=== PATIENT | male | born 1940 | race Two or more races ===

== ENCOUNTER 2022-12-23 00:29 | Inpatient (IN) | payer MEDICARE, MEDICAID ==
[~2022-12-23] VITALS: Ht 157.5 cm; Wt 60.0 kg
[2022-12-23] MEDS ORDERED: IPRATROPIUM NEB FS 0.5 MG/2.5 ML AMPUL.NEB ONE (00:40)
[2022-12-23] MEDS ORDERED: ALBUTEROL FS 2.5 MG/3 ML VIAL.NEB ONE (00:40)
--- NOTE | 2022-12-23 00:41 | NUR ---
[id number] FROM HOME C/O SOB X2 DAYS WORSER TONIGHT. 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 UPON ARRIVAL ON CPAP 100%. PATIENT IS AAOX4. ARMANIAN SPEAKING. ABLE TO MAKE NEEDS KNOWN. WAS SWITCH TO NASAL CANNULA AT 2LPM SATURATING 98%. PLACED COMFORTABLY IN BED. VITALS CHECKED.
--- NOTE | 2022-12-23 00:43 | NUR ---
SEEN BY DR PRESSLEY AT BEDSIDE. 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
--- NOTE | 2022-12-23 00:45 | NUR ---
COVID SWAB DONE AND SENT TO LAB
--- NOTE | 2022-12-23 00:47 | NUR ---
CAME WITH IV CANNULA G18 ON RIGHT AC. BLOOD DRAWN AND SENT TO LAB
--- NOTE | 2022-12-23 00:48 | NUR ---
NEB TREATMENT STARTED
[2022-12-23] MEDS ORDERED: methylPREDNISolone SOD SUCC 125 MG/2ML VIAL ONE (00:52)
[2022-12-23] MEDS ORDERED: Magnesium 1GM/D5W 100ML PREMIX 100 ML IV ONE (00:53)
[2022-12-23] MEDS ORDERED: ALBUTEROL FS 2.5 MG/3 ML VIAL.NEB CONTNEB ONE (01:00)
[2022-12-23] MEDS ORDERED: Magnesium 1GM/D5W 100ML PREMIX 200 ML IV ONE (01:00)
[2022-12-23] MEDS ORDERED: IPRATROPIUM NEB FS 0.5 MG/2.5 ML AMPUL.NEB NEB ONE (01:00)
[2022-12-23] MEDS ORDERED: methylPREDNISolone SOD SUCC 125 MG/2ML VIAL IV ONE (01:00)
--- NOTE | 2022-12-23 01:07 | NUR ---
OVER SHORT AND DAMAGE CLERK AT PT'S BEDSIDE
[2022-12-23 01:13] LABS: BASOPHILS % (AUTO) 0.4 % (0.0-2.0); EOSINOPHILS % (AUTO) 6.1 % (0.0-6.0); HEMATOCRIT 49 % (39-51); LYMPHOCYTES # (AUTO) 2.8 K/uL (0.8-4.8); LYMPHOCYTES % (AUTO) 27.7 % (20.0-44.0); MEAN CORPUSCULAR HGB CONC 33 g/dl (31.0-36.0); MEAN CORPUSCULAR VOLUME 97 fL (80-96); MONOCYTES # (AUTO) 1.4 K/uL (0.1-1.30); MONOCYTES % (AUTO) 13.6 % (2.0-12.0); NEUTROPHILS # (AUTO) 5.2 K/uL (1.8-8.9); NEUTROPHILS % (AUTO) 52.2 % (43.0-81.0); PLATELET COUNT (AUTO) 165 K/uL (150-450); RED BLOOD CELL COUNT(AUTO) 5.06 MIL/uL (4.5-6.0)
[2022-12-23 01:25] LABS: CALCIUM, SERUM 9.3 mg/dL (8.5-10.1); CARBON DIOXIDE 29 mmol/L (21-32); CHLORIDE 102 mmol/L (98-107); GLUCOSE 108 mg/dL (74-106); POTASSIUM 4.6 mmol/L (3.5-5.1); SODIUM SERUM 136 mmol/L (136-145); UREA NITROGEN, BLOOD 16 mg/dL (7-18)
[2022-12-23 01:38] LABS: ALANINE AMINOTRANSFERASE 20 U/L (12-78); ALKALINE PHOSPHATASE 62 U/L (46-116); ASPARTATE AMINOTRANSFERASE 28 U/L (15-37); BILIRUBIN,DIRECT 0.1 mg/dL (0.0-0.2); BILIRUBIN,TOTAL 0.6 mg/dL (0.2-1.0)
--- NOTE | 2022-12-23 01:54 | NUR ---
ABG DONE AT BEDSIDE BY RT
--- NOTE | 2022-12-23 02:32 | NUR ---
1ST CONTACT # - ANGELA 2ND CONTACT # - TOMAS *PLS UPDATE FAMILY EVERY SHIFT
[2022-12-23] MEDS ORDERED: ONDANSETRON HCL/PF 4 MG/2 ML VIAL IVP PRN (03:30)
[2022-12-23] MEDS ORDERED: MAG HYDROX/AL HYDROX/SIMETH 30 ML UDC PO PRN (03:30)
[2022-12-23] MEDS ORDERED: ALBUTEROL FS 2.5 MG/3 ML VIAL.NEB NEB PRN (03:30)
[2022-12-23] MEDS ORDERED: LEVOFLOXACIN 500 MG /D5W 100ML 500 MG in PREMIX 1 EA IV SCH (03:30)
[2022-12-23] MEDS ORDERED: ACETAMINOPHEN 325 MG TABLET PO PRN (03:30)
[2022-12-23] MEDS ORDERED: ZOLPIDEM TARTRATE 5 MG TABLET PO PRN (03:30)
[2022-12-23] MEDS ORDERED: IPRATROPIUM NEB FS 0.5 MG/2.5 ML AMPUL.NEB NEB PRN ×2 (03:30→03:56)
[2022-12-23] MEDS ORDERED: MAGNESIUM HYDROXIDE 30 ML UDC PO PRN (03:30)
[2022-12-23] MEDS ORDERED: Z GUARD REMEDY 4 OZ OINT TP PRN (03:30)
--- NOTE | 2022-12-23 04:00 | NUR ---
REPORT GIVEN TO ANNA RESTREPO
[2022-12-23 04:30] VITALS: BP 132/85
--- NOTE | 2022-12-23 04:40 | NUR ---
TRANSFERRED TO ROOM VIA ACLS PROTOCOL
--- NOTE | 2022-12-23 04:40 | NUR ---
FAMILY MADE AWARE THAT PATIENT WAS TRANSFERRED TO ROOM
[2022-12-23] MEDS ORDERED: LEVOFLOXACIN 500 MG /D5W 100ML 100 ML IV ONE (04:52)
[2022-12-23] MEDS: methylPREDNISolone SOD SUCC 40 MG/ML VIAL IV SCH ×2 (04:56→12:53)
--- NOTE | 2022-12-23 06:22 | NUR ---
RN CLOSING NOTES: ALERT AND ORIENTATED X4 VIA AUSCULTATION EXP WHEEZING NO SON 1 LITER 02 N/C SATS 96% MOVES ABOUT IN THE BED INDEPENDENTLY URINAL AT THE BEDSIDE APPEARS COMFORTABLE GERMAN SPEAKING WITH SOME UNDERSTANDING OF THE UKRAIN[place] LANGUAGE ABLE TO MAKE HIS NEEDS KNOWN
[2022-12-23 08:00] VITALS: BP_SYST 115; BP_SYST 132; BP_DIAS 77
[2022-12-23] MEDS ORDERED: PANTOPRAZOLE 40 MG VIAL IV SCH (09:00)
[2022-12-23] MEDS ORDERED: METO50TA16 PO (11:15)
[2022-12-23] MEDS ORDERED: OMEP40CA21 PO (11:15)
[2022-12-23] MEDS ORDERED: VALS80TA2 PO (11:15)
[2022-12-23] MEDS ORDERED: OXYC30TA2 PO (11:15)
[2022-12-23] MEDS ORDERED: ALBU8.5H8 IH (11:15)
[2022-12-23] MEDS ORDERED: SENN-302 PO (11:15)
[2022-12-23] MEDS ORDERED: AMLO-212 PO (11:15)
[2022-12-23] MEDS ORDERED: ASPI-1420 PO (11:15)
[2022-12-23] MEDS ORDERED: TAMS-12 PO (11:15)
[2022-12-23] MEDS ORDERED: ROSU20TA2 PO (11:15)
[2022-12-23] MEDS ORDERED: FLUT1DIS3 INH (11:15)
--- NOTE | 2022-12-23 13:20 | NUR ---
PATIENT A/OX 3, [place], ABLE TO MAKE NEEDS KNOWN. AMBULATORY WITH SUPERVISION. INDEPENDENT WITH REPOSITIONING. FALL PRECAUTIONS MAINTAINED AT ALL TIMES. SOLUMEDROL RTC GIVEN ORDERED. DISCHARGE INSTRUCTIONS AND TEACHINGS GIVEN, PT VERBALIZED UNDERSTANDING. PATIENT WAS PICKED UP BY HIS BROTHER YANET. CURTIS (SON) WAS MADE AWARE ABOUT THE DC.
== END 2022-12-23 13:20 | disposition hospice, home (50) | DRG 191 ==
LOC: ER 00:31 → TELE 03:48 → MED 04:58
DX: J44.1 Chronic obstructive pulmonary disease with (acute) exacerbation (principal); F11.20 Opioid dependence, uncomplicated; J98.11 Atelectasis; I11.0 Hypertensive heart disease with heart failure; I50.9 Heart failure, unspecified; R06.02 Shortness of breath; Z20.822 Contact with and (suspected) exposure to COVID-19; N40.0 Benign prostatic hyperplasia without lower urinary tract symptoms; Z79.51 Long term (current) use of inhaled steroids; E78.5 Hyperlipidemia, unspecified; Z79.899 Other long term (current) drug therapy; G89.4 Chronic pain syndrome; Z79.82 Long term (current) use of aspirin
CPT/HCPCS: 36415; 36600; 71045-TC; 80048-TC; 80076-TC; 82803-TC; 83880; 84484-TC; 85025-TC; 87081-TC; 94799-TC; A4216; C9113; C9803; G0378; J1956; J2920; J2930; J3475; J7050